=== PATIENT | female | born 1970 ===

== ENCOUNTER 2021-01-07 08:15 | Day surgery (SDC) | payer OTHER ==
[2021-01-07] MEDS ORDERED: NAPR500T14 PO (15:44)
[2021-01-07] MEDS ORDERED: MORGIDOX100 MG PO (15:44)
== END 2021-01-07 19:25 | disposition home or self-care (01) ==
LOC: CIR.AMB 08:15
PROVIDERS: ATTEND Obstetrics & Gynecology
DX: D25.0 Submucous leiomyoma of uterus (principal); N84.0 Polyp of corpus uteri; Z20.822 Contact with and (suspected) exposure to COVID-19